=== PATIENT | female | born 1980 | race Caucasian/White ===

== ENCOUNTER 2017-08-15 20:38 | Emergency (ER) | payer OTHER | END 2017-08-15 22:27 | disposition left against medical advice (07) | LOC: ERS 20:38 | DX: Z53.21 Procedure and treatment not carried out due to patient leaving prior to being seen by health care provider (principal) ==

== ENCOUNTER 2018-03-05 20:52 | Emergency (ER) | payer OTHER ==
--- NOTE | 2018-03-05 21:33 | RAD ---
LEFT ANKLE THREE VIEWS: 03/05/18 HISTORY: Left ankle injury. FINDINGS: Ankle mortise and talar dome are intact. Mild to moderate osteophytosis. No acute fracture or disloca tion. IMPRESSION: Osteophytosis somewhat pronounced for the patient's age. No acute osseous abnormalities are demonstra shireen. POS: [facility]
--- NOTE | 2018-03-05 22:35 | RAD ---
LEFT KNEE FOUR VIEWS: 03/05/18 HISTORY: Left knee injury. FINDINGS: Joint spaces are preserved. No acute fracture, dislocation, or fluid distention of the suprapatellar bursa. IMPRESSION: No acute osseous abnormalities are demonstrated. POS: [facility]
[2018-03-05] MEDS ORDERED: Ibuprofen 200 MG TAB ONE (22:45)
== END 2018-03-05 23:10 | disposition home or self-care (01) ==
LOC: ERS 20:52
DX: S93.402A Sprain of unspecified ligament of left ankle, initial encounter (principal); S83.92XA Sprain of unspecified site of left knee, initial encounter; I10 Essential (primary) hypertension; J44.9 Chronic obstructive pulmonary disease, unspecified; F17.210 Nicotine dependence, cigarettes, uncomplicated; X50.1XXA Overexertion from prolonged static or awkward postures, initial encounter